=== PATIENT | female | born 1975 | race Caucasian/White ===

== ENCOUNTER 2019-07-14 12:43 | Emergency (ER) | payer MEDICAID ==
[~2019-07-14] VITALS: Ht 157.5 cm; Wt 69.1 kg
[~2019-07-14 12:43] MED LIST: CEPH500 PO; SULF1TAB42 PO
[2019-07-14] MEDS ORDERED: ACET-66 PO (13:02)
[2019-07-14] MEDS ORDERED: IBUPROFEN 600 MG TABLET PO ONE (13:30)
[2019-07-14 14:44] VITALS: BP 119/67
== END 2019-07-14 14:58 | disposition home or self-care (01) ==
LOC: EMS 12:44
DX: M25.561 Pain in right knee (principal)